=== PATIENT | female | born 1985 | race Caucasian/White ===

== ENCOUNTER 2017-02-24 04:13 | Observation (INO) | payer SELFPAY ==
[~2017-02-24] VITALS: Ht 165.1 cm; Wt 53.9 kg
[~2017-02-24 04:13] MED LIST: ALBU8.5H5; AZIT250T; FLUT16SP2; HYDR-3240; IBUP200C75
[2017-02-24] MEDS ORDERED: KETAMINE 10 MG/ML, 20ML ONE (04:28)
[2017-02-24] MEDS ORDERED: ONDANSETRON 2MG/ML, 2ML ONE (04:29)
[2017-02-24] MEDS ORDERED: SODIUM CHLORIDE 0.9% 1,000ML IVBOLUS ONE (04:30)
[2017-02-24] MEDS ORDERED: SODIUM CHLORIDE FLUSH 10ML SYR IVF ONE (04:30)
[2017-02-24] MEDS ORDERED: ZIPRASIDONE 20 MG INJ IM ONE ×3 (04:30→05:30)
[2017-02-24] MEDS ORDERED: KETAMINE 100 MG/ML, 5ML IV ONE (04:30)
[2017-02-24] MEDS ORDERED: ONDANSETRON 2MG/ML, 2ML IVPush ONE (04:30)
[2017-02-24] MEDS ORDERED: LIDOCAINE 1%, 20ML ONE (04:42)
[2017-02-24 05:08] LABS: HEMATOCRIT 40.6 % (34.6-47.8); HEMOGLOBIN 13.5 g/dL (11.7-16.4); WHITE BLOOD COUNT 7.1 x10^3/uL (3.4-10)
[2017-02-24 05:15] LABS: BLOOD UREA NITROGEN 7 mg/dL (7-18)
[2017-02-24 05:21] LABS: ACETAMINOPHEN < 2 mcg/mL (10-30)
[2017-02-24] MEDS ORDERED: LORazepam 2 MG/ML, 1ML ONE (05:30)
[2017-02-24] MEDS ORDERED: LORazepam 2 MG/ML, 1ML IVPush ONE (05:30)
[2017-02-24] MEDS ORDERED: LORazepam 1MG TABLET ONE (12:47)
[2017-02-24] MEDS ORDERED: IBUPROFEN 200 MG TABLET PO PRN ×2 (13:00→19:00)
[2017-02-24] MEDS ORDERED: LORazepam 1MG TABLET PO PRN ×2 (13:00→19:00)
[2017-02-24] MEDS ORDERED: DOCUSATE 100 MG CAPSULE PO PRN ×2 (13:00→19:00)
[2017-02-24] MEDS ORDERED: ONDANSETRON ODT 4 MG PO PRN (13:00)
[2017-02-24] MEDS ORDERED: POLYETHYLENE GLYCOL 17 GM PACKET PO PRN (13:00)
[2017-02-24] MEDS ORDERED: ACETAMINOPHEN 325 MG TABLET PO PRN ×2 (13:00→19:00)
[2017-02-24] MEDS ORDERED: POTASSIUM CHLORIDE 20 MEQ TAB.ER.PRT PO ONE (13:00)
[2017-02-24] MEDS ORDERED: BISACODYL 10 MG SUPP PR PRN ×2 (13:00→19:00)
[2017-02-24] MEDS ORDERED: ZIPRASIDONE 20 MG INJ IM PRN ×2 (13:00→19:00)
[2017-02-24 13:53] LABS: DAU SCREEN DISCLAIMER
[2017-02-24 14:25] VITALS: BP 128/76
[2017-02-24] MEDS ORDERED: POTASSIUM CHLORIDE 20 MEQ TAB.ER.PRT ONE (19:57)
[2017-02-24 20:13] VITALS: BP 120/79
== END 2017-02-25 00:40 ==
LOC: ED 09:20 → EDIP 12:36 → 3E 13:10
PROVIDERS: ADMIT Hospitalist; ATTEND Hospitalist
DX: F23 Brief psychotic disorder (principal); S01.01XA Laceration without foreign body of scalp, initial encounter; R45.851 Suicidal ideations; F10.959 Alcohol use, unspecified with alcohol-induced psychotic disorder, unspecified; G31.2 Degeneration of nervous system due to alcohol; I11.9 Hypertensive heart disease without heart failure; E87.0 Hyperosmolality and hypernatremia; E87.6 Hypokalemia; F31.9 Bipolar disorder, unspecified; W22.01XA Walked into wall, initial encounter; Y93.89 Activity, other specified; Y92.89 Other specified places as the place of occurrence of the external cause; Y99.8 Other external cause status; Z82.49 Family history of ischemic heart disease and other diseases of the circulatory system; Z83.3 Family history of diabetes mellitus; Z87.891 Personal history of nicotine dependence
CPT/HCPCS: 12001; 12011; 36415; 70450; 70486; 72125; 80048; 80307; 80329; 81003; 82040; 84703; 85025; 96361; 96372; 96374; 96375; 99291; G0378; J2060; J2405; J3486; J7030; Q0162; G0479; G0480

== ENCOUNTER 2018-09-17 17:23 | Emergency (ER) | payer OTHER ==
[~2018-09-17] VITALS: Ht 149.9 cm; Wt 59.2 kg
[2018-09-17 17:25] VITALS: BP 131/94
[2018-09-17] MEDS ORDERED: KETOROLAC 30 MG/1 ML ONE (17:40)
--- NOTE | 2018-09-17 17:59 | NUR ---
ADDITIONALLY HAS FREQUENT COUGH
--- NOTE | 2018-09-17 17:59 | NUR ---
RIGHT RIB PAIN AFTER FALLING ON STAIRS 2 DAYS AGO
[2018-09-17] MEDS ORDERED: KETOROLAC 30 MG/1 ML IM ONE (18:00)
== END 2018-09-17 18:18 | disposition home or self-care (01) ==
LOC: ED 18:06
DX: S20.311A Abrasion of right front wall of thorax, initial encounter (principal); I10 Essential (primary) hypertension; F17.200 Nicotine dependence, unspecified, uncomplicated; W01.0XXA Fall on same level from slipping, tripping and stumbling without subsequent striking against object, initial encounter; Y93.89 Activity, other specified; Y92.009 Unspecified place in unspecified non-institutional (private) residence as the place of occurrence of the external cause; Y99.8 Other external cause status
CPT/HCPCS: 71101; 96372; 99283; J1885